=== PATIENT | male | born 1960 | race Caucasian/White ===

== ENCOUNTER 2020-10-29 07:57 | Day surgery (SDC) | payer OTHER ==
[~2020-10-29] VITALS: Ht 190.5 cm; Wt 129.2 kg
[~2020-10-29 07:57] MED LIST: FLONASE ALLERG9.9 M2; LOSA50 PO; OMEPRAZOLE MAGN20 MG PO
--- NOTE | 2020-10-29 08:39 | NUR ---
Ambulatory in Day Surgery History, Chart, Medications and Allergies reviewed before start of procedure.Patient confirms NPO status and agrees with scheduled surgery. Patient states colon prep results clear.Lungs clear T/O to Auscultation. Patient States Post-Procedure ride home has been arranged WITH
--- NOTE | 2020-10-29 08:44 | NUR ---
IV START ATTEMPTED X2 ROXANN MARSH
--- NOTE | 2020-10-29 08:53 | NUR ---
10/29/20 0853 Sanchez Alfonso History, Chart, Medications and Allergies reviewed before start of procedure.MONITOR INTACT WITH CONTINUOUS PULSE OXIMETRY AND INTERMITTENT BP.3-LEAD EKG REVIEWED WITH PHYSICIAN PRIOR TO START OF PROCEDURE.O2 VIA N/C INTACT THROUGHOUT SEDATION/PROCEDURE. PATIENT DETERMINED TO BE ASA APPROPRIATE FOR PROPOFOL SEDATION PRIOR TO START OF PROCEDURE BY DR. MA.
--- NOTE | 2020-10-29 10:23 | NUR ---
INTO STEP RECIEVED PATIENT AND REPORT VSS PATIENT GROGGY AT THIS TIME
--- NOTE | 2020-10-29 10:57 | NUR ---
PATIENT DRESSED AND GETTING READY TO BE WHEELED OUT VIA WHEELCHAIR. Discharge instructions reviewed with patient. Patient verbalizes understanding. Copy given to patient to take home. Patient States Post-Procedure ride home has been arranged. Discharged via wheelchair to private car for ride home.
== END 2020-10-29 11:01 | disposition home or self-care (01) ==
LOC: ORSCMMR 07:57 → ORSCSDS 07:57
PROVIDERS: Internal Medicine Gastroenterology
PROC: 0DBL8ZX Excision of Transverse Colon, Via Natural or Artificial Opening Endoscopic, Diagnostic (ICD-10-PCS; principal; 2020-10-29 09:00)
PROC: 0DBH8ZX Excision of Cecum, Via Natural or Artificial Opening Endoscopic, Diagnostic (ICD-10-PCS; principal; 2020-10-29 09:00)
PROC: 0DBN8ZX Excision of Sigmoid Colon, Via Natural or Artificial Opening Endoscopic, Diagnostic (ICD-10-PCS; principal; 2020-10-29 09:00)
PROC: 0DB58ZX Excision of Esophagus, Via Natural or Artificial Opening Endoscopic, Diagnostic (ICD-10-PCS; principal; 2020-10-29 09:00)
DX: K22.70 Barrett's esophagus without dysplasia (principal); Z12.11 Encounter for screening for malignant neoplasm of colon; D12.3 Benign neoplasm of transverse colon; D12.0 Benign neoplasm of cecum; K63.5 Polyp of colon; K64.4 Residual hemorrhoidal skin tags; K31.7 Polyp of stomach and duodenum; Z79.899 Other long term (current) drug therapy
CPT/HCPCS: 88305; J2250; J2704; J7120

== ENCOUNTER 2025-10-09 08:54 | Day surgery (SDC) | payer OTHER ==
[~2025-10-09] VITALS: Ht 190.5 cm; Wt 121.9 kg
[~2025-10-09 08:54] MED LIST changes: +Benicar40 MG; +CENTRUM MEN 501 EACH; +METF500; +VITAMIN D31000 UNI1
[2025-10-09] MEDS ORDERED: CARVEDILOL3.125 MG (09:26)
[2025-10-09 12:08] VITALS: BP 127/93
== END 2025-10-09 11:44 | disposition home or self-care (01) ==
LOC: ORSCSDS 08:54
PROVIDERS: Internal Medicine Gastroenterology
PROC: 0DJ08ZZ Inspection of Upper Intestinal Tract, Via Natural or Artificial Opening Endoscopic (ICD-10-PCS; principal; 2025-10-09 10:30)
DX: Z13.810 Encounter for screening for upper gastrointestinal disorder (principal); K22.70 Barrett's esophagus without dysplasia; K74.60 Unspecified cirrhosis of liver; E83.119 Hemochromatosis, unspecified; E11.9 Type 2 diabetes mellitus without complications; D69.6 Thrombocytopenia, unspecified; Z79.84 Long term (current) use of oral hypoglycemic drugs; Z79.899 Other long term (current) drug therapy
CPT/HCPCS: 82947; J2704; J7120